=== PATIENT | male | born 1975 | race Caucasian/White ===

== ENCOUNTER 2017-09-15 13:52 | Emergency (ER) | payer MEDICAID ==
[2017-09-15] MEDS: IBUPROFEN 800 MG TAB PO (16:52)
== END 2017-09-15 19:17 | disposition home or self-care (01) ==
LOC: FTE 13:52
DX: S80.01XA Contusion of right knee, initial encounter (principal); W01.0XXA Fall on same level from slipping, tripping and stumbling without subsequent striking against object, initial encounter; Y92.59 Other trade areas as the place of occurrence of the external cause; Z87.891 Personal history of nicotine dependence
CPT/HCPCS: 73562; 99283-25